=== PATIENT | female | born 1940 | race Caucasian/White ===

== ENCOUNTER 2017-08-14 14:48 | Emergency (ER) | payer MEDICARE ==
--- NOTE | 2017-08-14 15:57 | EDM.PDOC ---
ED HPI GENERAL MEDICAL PROBLEM - General Chief Complaint: Lower Extremity Injury/Pain Stated Complaint: INJURED LT LEG Time Seen by Provider: 08/14/17 15:30 Source of Information: Reports: Patient History Limitations: Reports: No Limitations - History of Present Illness INITIAL COMMENTS - FREE TEXT/NARRATIVE: 77-year-old female fell through the boards of a dock yesterday, causing some bruising of her lower left leg but today bumped her leg against a cupboard and had a marked increase in pain. She is having pain with weightbearing and increased bruising so wanted it checked. No other injury. 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: Musculoskeletal History: Reports: Fracture - Past Surgical History Musculoskeletal Surgical History: Reports: ORIF, Other (See Below) Other Musculoskeletal Surgeries/Procedures:: left knee Social & Family History - Tobacco Use Smoking Status *Q: Never Smoker - Caffeine Use Caffeine Use: Reports: Coffee - Alcohol Use Days Per Week of Alcohol Use: 1 Number of Drinks Per Day: 1 Total Drinks Per Week: 1 - Recreational Drug Use Recreational Drug Use: No Review of Systems - Review of Systems Review Of Systems: See Below Constitutional: Denies: Fever Respiratory: Denies: Shortness of Breath Cardiovascular: Denies: Chest Pain GI/Abdominal: Denies: Abdominal Pain Skin: Reports: Bruising Neurological: Denies: Paresthesia ED EXAM, GENERAL - Physical Exam Exam: See Below Exam Limited By: No Limitations General Appearance: Alert, No Apparent Distress Head: Atraumatic Respiratory/Chest: No Respiratory Distress Extremities: Other (Exam is otherwise limited to the left lower extremity. She has ecchymosis and swelling along the lateral aspect of the lower leg just above the ankle. It's tender to palpation, there is no tenderness to the knee or ankle.) Course - Vital Signs Last Recorded V/S: Last Vital Signs Temp 97.2 F 08/14/17 15:22 Pulse 67 08/14/17 15:22 Resp 16 08/14/17 15:22 BP 149/84 H 08/14/17 15:22 Pulse Ox 97 08/14/17 15:22 - Re-Assessments/Exams Free Text/Narrative Re-Assessment/Exam: 08/14/17 15:58 An x-ray of the tib-fib was negative. A three-inch Adriano wrap was applied to the lower leg and the patient was encouraged to increase activity as tolerated. Departure - Departure Time of Disposition: 16:18 Disposition: Home, Self-Care 01 Condition: Good Clinical Impression: Contusion of leg, left Qualifiers: Encounter type: initial encounter Qualified Code(s): S80.12XA - Contusion of left lower leg, initial encounter - Discharge Information Instructions: Contusion, [id number] Referrals: PCP,None [Primary Care Provider] - Forms: ED Department Discharge Care Plan Goals: Wrap leg for comfort and swelling, elevate when able and a few doses of ibuprofen daily should help. Increase activity as tolerated and return for recheck at any time if not healing satisfactorily.
--- NOTE | 2017-08-15 08:28 | CR ---
Tibia Fibula Lt CLINICAL HISTORY: Pain, fall FINDINGS: Patient has had a previous of the lateral tibial plateau fracture with open fixation. There is some irregularity of the articular surface of the tibial plateau. Impression: Previous lateral tibial plateau fracture with open fixation
== END 2017-08-14 16:19 | disposition home or self-care (01) ==
LOC: JP.ED 14:48
DX: S80.12XA Contusion of left lower leg, initial encounter (principal); E78.00 Pure hypercholesterolemia, unspecified; Z79.899 Other long term (current) drug therapy; W01.198A Fall on same level from slipping, tripping and stumbling with subsequent striking against other object, initial encounter
CPT/HCPCS: 73590-26-LT; 73590-LT; 99284

== ENCOUNTER 2020-09-04 15:56 | Emergency (ER) | payer MEDICARE ==
--- NOTE | 2020-09-04 17:05 | EDM.PDOC ---
ED HPI GENERAL MEDICAL PROBLEM - General Chief Complaint: Genitourinary Problem Stated Complaint: POSSIBLE UTI Time Seen by Provider: 09/04/20 16:50 Source of Information: Reports: Patient, Family History Limitations: Reports: No Limitations - History of Present Illness INITIAL COMMENTS - FREE TEXT/NARRATIVE: 80-year-old with past history of cystitis, presents with 6 hours of increased urinary frequency, dysuria but no fever chills or back pain. 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 Musculoskeletal Surgical History: Reports: ORIF, Other (See Below) Other Musculoskeletal Surgeries/Procedures:: left knee Social & Family History - Tobacco Use Tobacco Use Status *Q: Never Tobacco User Second Hand Smoke Exposure: No - Caffeine Use Caffeine Use: Reports: Coffee - Alcohol Use Days Per Week of Alcohol Use: 0 - Recreational Drug Use Recreational Drug Use: No ED ROS GENERAL - Review of Systems Review Of Systems: See Below Constitutional: Denies: Fever, Chills HEENT: Reports: No Symptoms Respiratory: Denies: Shortness of Breath Cardiovascular: Denies: Chest Pain GI/Abdominal: Denies: Abdominal Pain, Nausea, Vomiting Skin: Denies: Rash Neurological: Reports: No Symptoms ED EXAM, RENAL/ - Physical Exam Exam: See Below Exam Limited By: No Limitations General Appearance: Alert, No Apparent Distress Head: Atraumatic Respiratory/Chest: No Respiratory Distress, Lungs Clear Cardiovascular: Regular Rate, Rhythm GI/Abdominal: Non-Tender Back Exam: No: CVA Tenderness (R), CVA Tenderness (L) Neurological: Alert, Oriented Course - Vital Signs Last Recorded V/S: Last Vital Signs Temp 97.3 F 09/04/20 16:41 Pulse 73 09/04/20 16:41 Resp 16 09/04/20 16:41 BP 150/91 H 09/04/20 16:41 Pulse Ox 97 09/04/20 16:41 - Orders/Labs/Meds Orders: Active Orders 24 hr Category Date Time Status CULTURE URINE [RM] Stat Lab 09/04/20 17:02 Received Labs: Laboratory Tests 09/04/20 Range/Units 16:00 Urine Color Yellow (YELLOW) Urine Appearance Turbid A (CLEAR) Urine pH 6.5 (5.0-8.0) Ur Specific [place] 1.025 (1.008-1.030) Urine Protein >=300 H (NEGATIVE) mg/dL Urine Glucose (UA) Negative (NEGATIVE) mg/dL Urine Ketones Negative (NEGATIVE) mg/dL Urine Occult Blood Large H (NEGATIVE) Urine Nitrite Positive H (NEGATIVE) Urine Bilirubin Negative (NEGATIVE) Urine Urobilinogen 0.2 (0.2-1.0) EU/dL Ur Leukocyte Esterase Moderate H (NEGATIVE) Urine RBC Semi-packed H (0-5) Urine WBC Semi-packed H (0-5) Ur Epithelial Cells Few Amorphous Sediment Occasional Urine Bacteria Few Urine Mucus Occasional - Re-Assessments/Exams Free Text/Narrative Re-Assessment/Exam: 09/04/20 18:20 UA was obtained and is nitrite positive, many WBCs and RBCs and bacteria is present. A culture was initiated, patient will be placed on Cipro 500 mg twice daily for 5 days. We will be in touch with her with the culture results if a change in medication is needed, patient can return anytime if worsening such as fever, vomiting the medication or worsening pain. Departure - Departure Time of Disposition: 17:12 Disposition: Home, Self-Care 01 Clinical Impression: UTI, Urinary tract infectious disease - Discharge Information Instructions: Urinary Tract Infection, Adult Referrals: PCP,None [Primary Care Provider] - Forms: ED Department Discharge Care Plan Goals: Take antibiotic twice a day for 5 consecutive days. Stay hydrated, return anytime if worsening such as fever, back pain or vomiting medication. We will be in touch with you in the next couple of days if a change in medication is necessary based on your urine culture. Sepsis Event Note (ED) - Evaluation Sepsis Screening Result: No Definite Risk - Focused Exam Vital Signs: Vital Signs Temp Pulse Resp BP Pulse Ox 09/04/20 16:41 97.3 F 73 16 150/91 H 97 09/04/20 16:23 97.3 F 73 16 150/91 H 97 - My Orders Last 24 Hours: My Active Orders 09/04/20 17:02 CULTURE URINE [RM] Stat - Assessment/Plan Last 24 Hours: My Active Orders 09/04/20 17:02 CULTURE URINE [RM] Stat
== END 2020-09-04 17:12 | disposition home or self-care (01) ==
LOC: JP.ED 15:56
DX: N39.0 Urinary tract infection, site not specified (principal); E78.00 Pure hypercholesterolemia, unspecified; Z79.899 Other long term (current) drug therapy; Z88.1 Allergy status to other antibiotic agents
CPT/HCPCS: 81001; 87077; 87086; 87186; 99283

== ENCOUNTER 2021-11-30 18:55 | Emergency (ER) | payer MEDICARE | END 2021-11-30 21:26 | disposition home or self-care (01) | LOC: JP.ED 18:55 | DX: S82.031A Displaced transverse fracture of right patella, initial encounter for closed fracture (principal); S00.83XA Contusion of other part of head, initial encounter; W19.XXXA Unspecified fall, initial encounter | CPT/HCPCS: 70450; 70486; 73560-26-RT; 73560-RT; 99284 ==

== ENCOUNTER 2022-08-28 07:43 | Emergency (ER) | payer MEDICARE ==
[2022-08-28 08:35] LABS: APPEARANCE,URINE CLOUDY (CLEAR); BILIRUBIN,URINE NEGATIVE (NEGATIVE); COLOR,URINE YELLOW (YELLOW); GLUCOSE,URINE NEGATIVE (NEGATIVE); KETONES,URINE NEGATIVE (NEGATIVE); LEUKOCYTE ESTERASE,URINE MODERATE (NEGATIVE); NITRITE,URINE NEGATIVE (NEGATIVE); OCCULT BLOOD,URINE MODERATE (NEGATIVE); PH,URINE 5.5 (5.0-8.0); PROTEIN,URINE 100 mg/dL (NEGATIVE); UROBILINOGEN,URINE 0.2 EU/dL (0.2-1.0)
[2022-08-28 08:40] LABS: RBC,URINE 50-75 (0-5)
[2022-08-28 08:41] LABS: AMORPHOUS SEDIMENT,URINE NOT SEEN; BACTERIA,URINE MANY; EPITHELIAL CELLS,URINE RARE; MUCUS,URINE MODERATE; WBC,URINE 75-100 (0-5)
== END 2022-08-28 08:51 | disposition home or self-care (01) ==
LOC: JP.ED 07:43
DX: N30.01 Acute cystitis with hematuria (principal); R82.71 Bacteriuria; R82.81 Pyuria; E78.00 Pure hypercholesterolemia, unspecified; Z79.899 Other long term (current) drug therapy; Z86.16 Personal history of COVID-19; Z88.1 Allergy status to other antibiotic agents
CPT/HCPCS: 81001; 87086; 87088; 87186; 99283